=== PATIENT | female | born 1940 | race Caucasian/White ===

== ENCOUNTER 2018-06-01 11:42 | Emergency (ER) | payer MEDICARE, BC ==
[~2018-06-01] VITALS: Ht 170.2 cm; Wt 100.0 kg
[2018-06-01 11:50] VITALS: TEMP 98.7
[2018-06-01 12:39] LABS: MEAN CELL VOLUME 99 fl (80.0-100.0); MEAN CORPUSCULAR HEMOGLOBIN 34 pg (27.0-31.0); MEAN CORPUSCULAR HGB CONC 34 g/dl (33.0-37.0); PLATELET COUNT 142 K/mm3 (130-400); RED BLOOD COUNT 4.75 M/mm3 (4.10-5.30); REDCELL DISTRIBUTION WIDTH-CV 13.2 % (11.5-14.5)
[2018-06-01 12:54] LABS: ALBUMIN 3.8 gm/dL (3.5-5.0); BILIRUBIN,TOTAL 1.3 mg/dL (0.0-1.0); CALCIUM 8.9 mg/dL (8.4-10.2); CREATININE, serum 1.07 mg/dL (0.52-1.25); POTASSIUM 3.5 mmol/L (3.4-5.0); TOTAL PROTEIN 7.4 gm/dL (6.4-8.2)
[2018-06-01 13:34] LABS: BAND 30 % (0-10); BASOPHIL 1 % (0-2); LYMPHOCYTE 5 % (20.0-51.0); NEUTROPHILS 60 % (42.0-75.2); PLATELET ESTIMATE NORMAL (NORMAL)
[2018-06-01] MEDS ORDERED: CEPHALEXIN500 M1 PO (14:02)
[2018-06-01] MEDS ORDERED: DOXYCYCLINE 10100 MG PO (14:02)
[2018-06-01 14:18] VITALS: BP 105/72; PULSE 72
[2018-06-02] MEDS ORDERED: SYNTHROID0.2 MG/TAB PO (17:56)
[2018-06-02] MEDS ORDERED: NEURONTIN600 MG/TAB PO ×2 (17:56→20:03)
[2018-06-02] MEDS ORDERED: REQUIP 1MG T1 MG/TAB PO (17:57)
[2018-06-02] MEDS ORDERED: BUMEX2 MG PO (17:58)
== END 2018-06-01 14:19 | disposition home or self-care (01) ==
LOC: COL.ER 11:42
PROVIDERS: Physician Assistant
DX: S91.13 Puncture wound without foreign body of toe without damage to nail (principal); L03.032 Cellulitis of left toe; F17.210 Nicotine dependence, cigarettes, uncomplicated; Z96.651 Presence of right artificial knee joint; Z96.653 Presence of artificial knee joint, bilateral; Z89.422 Acquired absence of other left toe(s); W45.0XXD Nail entering through skin, subsequent encounter

== ENCOUNTER 2018-06-02 14:11 | Observation (INO) | payer MEDICARE, BC ==
[~2018-06-02] VITALS: Ht 170.2 cm; Wt 99.2 kg
[~2018-06-02 14:11] MED LIST: CEPHALEXIN500 M1 PO; DOXYCYCLINE 10100 MG PO
[2018-06-02 15:17] LABS: BASO # 0.1 (0.0-0.2); BASO % 0.3 % (0.0-2.0); EOS % 0.2 % (0-4.0); GRAN # 12.9 (1.4-6.5); GRAN % 79.9 % (42.2-75.2); HEMATOCRIT 48.2 % (37.0-47.0); HEMOGLOBIN 16.1 g/dl (12.5-16.0); LYMPH # 1.3 (1.2-3.4); LYMPH % 8.2 % (20.0-51.0); MEAN CELL VOLUME 101 fl (80.0-100.0); MEAN CORPUSCULAR HEMOGLOBIN 34 pg (27.0-31.0); MEAN CORPUSCULAR HGB CONC 33 g/dl (33.0-37.0); MEAN PLATELET VOLUME 10.4 fl (7.4-10.4); MONO # 1.7 (0.1-0.6); MONO % 10.7 % (1.7-9.3); PLATELET COUNT 174 K/mm3 (130-400); RED BLOOD COUNT 4.79 M/mm3 (4.10-5.30)
[2018-06-02 15:24] LABS: ALBUMIN 3.9 gm/dL (3.5-5.0); BILIRUBIN,TOTAL 1.1 mg/dL (0.0-1.0); CALCIUM 9.2 mg/dL (8.4-10.2); CREATININE, serum 1.09 mg/dL (0.52-1.25); POTASSIUM 3.8 mmol/L (3.4-5.0); TOTAL PROTEIN 7.6 gm/dL (6.4-8.2)
[2018-06-02 15:46] LABS: COLLECTION METHOD CLEAN CATCH
[2018-06-02 16:02] LABS: MUCOUS Present /lpf; PH 6 (5-8); URINE APPEARANCE Clear; URINE BACTERIA Rare /hpf; URINE BILIRUBIN Negative (NEGATIVE); URINE BLOOD 1+ (NEGATIVE); URINE COLOR Yellow; URINE GLUCOSE Negative (NEGATIVE); URINE KETONE Negative (NEGATIVE); URINE LEUKOCYTE ESTERASE Negative (NEGATIVE); URINE NITRATE Negative (NEGATIVE); URINE PROTEIN(semi-quant) Negative (NEGATIVE); URINE UROBILINOGEN Negative (NEGATIVE)
[2018-06-02] MEDS ORDERED: SYNTHROID0.2 MG/TAB PO (17:56)
[2018-06-02] MEDS ORDERED: NEURONTIN600 MG/TAB PO ×2 (17:56→20:03)
[2018-06-02] MEDS ORDERED: REQUIP 1MG T1 MG/TAB PO (17:57)
[2018-06-02] MEDS ORDERED: BUMEX2 MG PO (17:58)
--- NOTE | 2018-06-02 19:25 | NUR ---
Pt report given to Shine JEFFERY. Pt admission will be done by Shine JEFFERY. Wound care discussed with SHINE and wound care consult needs to be called. Pt in bed with family at bedside. Pt has call light in reach.
[2018-06-02 20:39] VITALS: BP 105/42; PULSE 86; TEMP 98.5
[2018-06-03 00:52] VITALS: BP 105/52; PULSE 62; TEMP 98.4
[2018-06-03 04:49] VITALS: BP 118/76; PULSE 89
--- NOTE | 2018-06-03 06:30 | NUR ---
Pt slept during the night, hse does have C/O pain and has received pain medication Q4H, left foot ulcer has an Aquacell bandage covering the ulcer, several 4X4 saulo sponges under the toes and wrapped with Dermacea bandage roll. Vs have remained stable during the night.
[2018-06-03 07:31] VITALS: BP 128/61; PULSE 81; TEMP 98.4
[2018-06-03 08:10] LABS: HEMATOCRIT 44.3 % (37.0-47.0); HEMOGLOBIN 14.9 g/dl (12.5-16.0); MEAN CELL VOLUME 99 fl (80.0-100.0); MEAN CORPUSCULAR HEMOGLOBIN 33 pg (27.0-31.0); MEAN CORPUSCULAR HGB CONC 34 g/dl (33.0-37.0); MEAN PLATELET VOLUME 10.1 fl (7.4-10.4); PLATELET COUNT 160 K/mm3 (130-400); RED BLOOD COUNT 4.46 M/mm3 (4.10-5.30); REDCELL DISTRIBUTION WIDTH-CV 12.9 % (11.5-14.5)
--- NOTE | 2018-06-03 08:25 | NUR ---
Patient resting in bed with LLE elevated on pillow. She is alert and oriented x 3. Pain is 4/10 on pain scale. Percocet had been given earlier this AM which gave some relief to the pain. Skin w/d. Color pink. Lungs CTA with resp even and unlabored. Abd soft with bowels sounds. Patient reports no problems with bowel and bladder. PPP. Noted left leg with 2+ edema. Reddness up to the knee. Dressing intact to foot. No other needs at this time. Will continue to monitor pain levels; attempt to provide comfort and attend to patients needs. Call light in place. Patient is low fall risk
[2018-06-03 08:34] LABS: ALBUMIN 3.4 gm/dL (3.5-5.0); BILIRUBIN,TOTAL 0.9 mg/dL (0.0-1.0); CALCIUM 8.9 mg/dL (8.4-10.2); CREATININE, serum 0.75 mg/dL (0.52-1.25); POTASSIUM 3.7 mmol/L (3.4-5.0); TOTAL PROTEIN 6.8 gm/dL (6.4-8.2)
--- NOTE | 2018-06-03 10:38 | NUR ---
Patient was crying when I went to visit her. We had a long conversation and discussed why we have trials and some of the benefits of going through trials in our lives. I prayed with her before leaving the room.
[2018-06-03 12:56] VITALS: BP 118/59; PULSE 83; TEMP 98.4
[2018-06-03 13:00] LABS: BAND 8 % (0-10); LYMPHOCYTE 8 % (20.0-51.0); NEUTROPHILS 74 % (42.0-75.2)
[2018-06-03 13:01] LABS: PLATELET ESTIMATE NORMAL (NORMAL)
--- NOTE | 2018-06-03 14:56 | NUR ---
Plan: Home with and DTR Shobha and has help with hers son Jin. Assess: Patient reports that she resides in [place], [place]. Shobha is the EMR contact at . Patient declined home health care, and the use of any DME. Patient shares that Dr. Gallegos is her PCP and they use [facility] for RX in [place]. PT will follow-up with Dr. Beth. DPOA ppw available. Action: Patient denies having any needs.
[2018-06-03 16:37] VITALS: BP 117/80; PULSE 64; TEMP 98.4
--- NOTE | 2018-06-03 18:30 | NUR ---
Patient has been up independently in the room. Continue to leave left foot elevated without any encouragement. Patient has dressing CD&I. Continues to have pain but rates it minimally. IV fluids continue to infuse without difficultly. IV antibiotics given as per order. Patient denies any request. Pain medications x 1 today. Leg marked per MD orders. Patient has no other needs.
[2018-06-03 19:02] VITALS: BP 118/53; PULSE 63
[2018-06-04 03:38] VITALS: BP 138/66; PULSE 78
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
[2018-06-04 09:05] LABS: MEAN CELL VOLUME 101 fl (80.0-100.0); MEAN CORPUSCULAR HEMOGLOBIN 33 pg (27.0-31.0); MEAN CORPUSCULAR HGB CONC 33 g/dl (33.0-37.0); MEAN PLATELET VOLUME 10.5 fl (7.4-10.4); PLATELET COUNT 160 K/mm3 (130-400); RED BLOOD COUNT 4.26 M/mm3 (4.10-5.30)
--- NOTE | 2018-06-04 09:07 | NUR ---
Pt is awake and A/Ox4, sitting up in bed. She states her pain is minimal while resting in bed, rating it a 2/10 to LLE. LLE is elevated on pillow. Redness to LLE within outline previously marked. Dressing to left foot/ankle is CDI. Saline lock to left FA is without complications. Pt remains independent in room. Denies any needs. Family is at bedside.
[2018-06-04 09:27] VITALS: BP 112/73; PULSE 71; TEMP 98.6
[2018-06-04 09:46] LABS: CALCIUM 8.7 mg/dL (8.4-10.2); CREATININE, serum 0.65 mg/dL (0.52-1.25); POTASSIUM 3.8 mmol/L (3.4-5.0)
--- NOTE | 2018-06-04 10:21 | NUR ---
Dressing to left foot changed at this time.
--- NOTE | 2018-06-04 11:45 | NUR ---
Pt requested requip for restless legs at this time. Order for requip is for HS, spoke with Dr. Payne. Since pt is at max dose/day of requip did not want to given PRN dose but stated to given HS order early. Pt also requested PRN norco for 5/10 pain to left foot. Pt denies any other needs, will monitor.
[2018-06-04 12:59] LABS: BAND 4 % (0-10); LYMPHOCYTE 13 % (20.0-51.0); NEUTROPHILS 75 % (42.0-75.2); PLATELET ESTIMATE NORMAL (NORMAL)
[2018-06-04 14:02] VITALS: BP 111/46; PULSE 52; TEMP 98.2
--- NOTE | 2018-06-04 14:52 | NUR ---
Pt was discharged home from hospital. All discharge instructions and paperwork was reviewed with pt and family, expressed understanding. Saline lock removed, catheter tip intact. Pt was escorted out of facility by staff.
== END 2018-06-04 14:57 | disposition home or self-care (01) ==
LOC: COL.ER 14:11 → MEDICAL 17:11
PROVIDERS: Emergency Medicine; Family Medicine; Physician Assistant; ADMIT Hospitalist
DX: S91.332S Puncture wound without foreign body, left foot, sequela (principal); L03.116 Cellulitis of left lower limb; A46 Erysipelas; E87.3 Alkalosis; E87.8 Other disorders of electrolyte and fluid balance, not elsewhere classified; E87.1 Hypo-osmolality and hyponatremia; E03.9 Hypothyroidism, unspecified; F17.210 Nicotine dependence, cigarettes, uncomplicated; G62.9 Polyneuropathy, unspecified; G25.81 Restless legs syndrome; Z85.3 Personal history of malignant neoplasm of breast; Z90.710 Acquired absence of both cervix and uterus; Z96.653 Presence of artificial knee joint, bilateral; Z90.11 Acquired absence of right breast and nipple; Z89.422 Acquired absence of other left toe(s); Z79.899 Other long term (current) drug therapy; Z88.2 Allergy status to sulfonamides; Y83.5 Amputation of limb(s) as the cause of abnormal reaction of the patient, or of later complication, without mention of misadventure at the time of the procedure
CPT/HCPCS: 99233-AI; 99239; G0378; J1650; J3370; J7030; J7050

== ENCOUNTER 2018-09-10 13:45 | Emergency (ER) | payer MEDICARE, BC ==
[~2018-09-10] VITALS: Ht 170.2 cm; Wt 95.5 kg
[~2018-09-10 13:45] MED LIST changes: +BUMEX2 MG PO; +NEURONTIN600 MG/TAB PO; +REQUIP 1MG T1 MG/TAB PO; +SYNTHROID0.2 MG/TAB PO
[2018-09-10 13:51] VITALS: TEMP 100.2
[2018-09-10] MEDS ORDERED: DOXYCYCLINE 10100 MG PO (15:40)
[2018-09-10] MEDS ORDERED: CEPHALEXIN500 M1 PO (15:40)
[2018-09-10 16:10] LABS: BASO # 0.1 (0.0-0.2); BASO % 0.4 % (0.0-2.0); GRAN # 14.8 (1.4-6.5); GRAN % 88.4 % (42.2-75.2); HEMOGLOBIN 16.4 g/dl (12.5-16.0); LYMPH # 0.9 (1.2-3.4); LYMPH % 5.1 % (20.0-51.0); MEAN CELL VOLUME 104 fl (80.0-100.0); MEAN CORPUSCULAR HEMOGLOBIN 34 pg (27.0-31.0); MEAN CORPUSCULAR HGB CONC 33 g/dl (33.0-37.0); MEAN PLATELET VOLUME 10.3 fl (7.4-10.4); MONO # 0.9 (0.1-0.6); MONO % 5.2 % (1.7-9.3); PLATELET COUNT 138 K/mm3 (130-400); RED BLOOD COUNT 4.83 M/mm3 (4.10-5.30); REDCELL DISTRIBUTION WIDTH-CV 14.2 % (11.5-14.5)
[2018-09-10 16:25] LABS: ALANINE AMINOTRANSFERASE < 6 U/L (9-52); ALKALINE PHOSPHATASE 71 U/L (50-136); ANION GAP 11 mmol/L (7-16); AST,SGOT 20 U/L (15-37); BLOOD UREA NITROGEN 16 mg/dL (7-17); CALCIUM 9.1 mg/dL (8.4-10.2); CARBON DIOXIDE 27 mmol/L (22-30); CHLORIDE 100 mmol/L (98-107); CREATININE, serum 0.99 (0.52-1.25); GLUCOSE 110 mg/dL (74-106); SODIUM 137 mmol/L (137-145); TOTAL PROTEIN 7.5 gm/dL (6.4-8.2)
[2018-09-10 17:12] VITALS: BP 122/68; PULSE 101
== END 2018-09-10 17:30 | disposition home or self-care (01) ==
LOC: COL.ER 13:45
PROVIDERS: Emergency Medicine
DX: L03.116 Cellulitis of left lower limb (principal)
CPT/HCPCS: J0690; J1885; J7030